=== PATIENT | female | born 1980 | race Caucasian/White ===

== ENCOUNTER 2016-09-24 05:29 | Inpatient (IN) | payer BC ==
[~2016-09-24] VITALS: Ht 160 cm; Wt 84.5 kg
[2016-09-24] VITALS (17 sets, daily range): BP systolic 97–123; BP diastolic 54–97; PULSE 62–86; TEMP 97.5–98.7
[~2016-09-24 05:29] MED LIST: MOTRIN 800800 MG/TAB PO; PERCOCET 325 MG1 TA2 PO; PRENATAL1 TA7 PO
[2016-09-24 06:41] LABS: BASO % 0.1 % (0.0-2.0); EOS # 0.1 (0.0-0.7); EOS % 0.7 % (0-4.0); GRAN # 5.2 (1.4-6.5); GRAN % 71.6 % (42.2-75.2); HEMATOCRIT 41.9 % (37.0-47.0); HEMOGLOBIN 14.6 g/dl (12.5-16.0); LYMPH # 1.6 (1.2-3.4); LYMPH % 21.8 % (20.0-51.0); MEAN CELL VOLUME 88 fl (80.0-100.0); MEAN CORPUSCULAR HEMOGLOBIN 31 pg (27.0-31.0); MEAN CORPUSCULAR HGB CONC 35 g/dl (33.0-37.0); MEAN PLATELET VOLUME 9.8 fl (7.4-10.4); MONO # 0.4 (0.1-0.6); MONO % 5.4 % (1.7-9.3); PLATELET COUNT 136 K/mm3 (130-400); RED BLOOD COUNT 4.74 M/mm3 (4.10-5.30); REDCELL DISTRIBUTION WIDTH-CV 13.7 % (11.5-14.5); WHITE BLOOD COUNT 7.3 K/mm3 (4.8-10.8)
[2016-09-24] MEDS ORDERED: MOTRIN 600600 MG/TAB PO (14:51)
[2016-09-24] MEDS ORDERED: PERCOCET 325 MG1 TA2 PO (14:51)
[2016-09-25] VITALS: BP 107/66; PULSE 65; TEMP 97.5
[2016-09-25 03:10] VITALS: BP 104/66; PULSE 74; TEMP 98.1
[2016-09-25 07:15] VITALS: BP 103/55; PULSE 67; TEMP 98.1
[2016-09-25 08:48] LABS: BASO % 0.2 % (0.0-2.0); EOS % 0.3 % (0-4.0); GRAN # 7.4 (1.4-6.5); GRAN % 83.6 % (42.2-75.2); HEMATOCRIT 39.8 % (37.0-47.0); HEMOGLOBIN 13.2 g/dl (12.5-16.0); LYMPH % 11.3 % (20.0-51.0); MEAN CELL VOLUME 92 fl (80.0-100.0); MEAN CORPUSCULAR HEMOGLOBIN 30 pg (27.0-31.0); MEAN CORPUSCULAR HGB CONC 33 g/dl (33.0-37.0); MONO # 0.4 (0.1-0.6); PLATELET COUNT 120 K/mm3 (130-400); RED BLOOD COUNT 4.35 M/mm3 (4.10-5.30); REDCELL DISTRIBUTION WIDTH-CV 13.9 % (11.5-14.5); WHITE BLOOD COUNT 8.8 K/mm3 (4.8-10.8)
[2016-09-25 12:30] VITALS: BP 112/68; PULSE 73; TEMP 98
== END 2016-09-25 16:50 | disposition home or self-care (01) | DRG 765 ==
LOC: OB 05:29
PROVIDERS: Obstetrics & Gynecology
PROC: 10D00Z1 Extraction of Products of Conception, Low, Open Approach (ICD-10-PCS; principal; 2016-09-24)
DX: O34.211 Maternal care for low transverse scar from previous cesarean delivery (principal); O99.113 Other diseases of the blood and blood-forming organs and certain disorders involving the immune mechanism complicating pregnancy, third trimester; D69.6 Thrombocytopenia, unspecified; N85.8 Other specified noninflammatory disorders of uterus; O09.523 Supervision of elderly multigravida, third trimester; O09.43 Supervision of pregnancy with grand multiparity, third trimester; Z3A.39 39 weeks gestation of pregnancy; Z37.0 Single live birth; O69.81X0 Labor and delivery complicated by cord around neck, without compression, not applicable or unspecified
CPT/HCPCS: J0690; J1885; J2175; J2270; J2370; J2405; J2590; J7120

== ENCOUNTER 2019-10-24 05:27 | Inpatient (IN) | payer OTHER ==
[2019-10-24] VITALS (18 sets, daily range): BP systolic 89–130; BP diastolic 56–81; PULSE 62–78; TEMP 98.1–98.5
[~2019-10-24] VITALS: Ht 160 cm; Wt 85.9 kg
--- NOTE | 2019-10-24 05:25 | NUR ---
Pt ambulatory to 222 for scheduled repeat c/s. Clean gown on. EFM and TOCO explained and applied. Pt denies LOF, vaginal bleeding or contractions. Report good movement. IV started and labs obtained via IV site. LR bolus infusing without difficulties. Consents and VS taken. Call light within reach.
[~2019-10-24 05:27] MED LIST changes: +MOTRIN 600600 MG/TAB PO
[2019-10-24 06:15] LABS: BASO % 0.1 % (0.0-2.0); EOS # 0.1 (0.0-0.7); EOS % 0.6 % (0-4.0); GRAN # 5.6 (1.4-6.5); HEMATOCRIT 44.5 % (37.0-47.0); HEMOGLOBIN 15.4 g/dl (12.5-16.0); LYMPH # 1.6 (1.2-3.4); LYMPH % 20.3 % (20.0-51.0); MEAN CELL VOLUME 89 fl (80.0-100.0); MEAN CORPUSCULAR HEMOGLOBIN 31 pg (27.0-31.0); MEAN CORPUSCULAR HGB CONC 35 g/dl (33.0-37.0); MEAN PLATELET VOLUME 9.7 fl (7.4-10.4); MONO # 0.4 (0.1-0.6); MONO % 5.5 % (1.7-9.3); PLATELET COUNT 146 K/mm3 (130-400); RED BLOOD COUNT 5.02 M/mm3 (4.10-5.30); REDCELL DISTRIBUTION WIDTH-CV 13.8 % (11.5-14.5)
--- NOTE | 2019-10-24 12:15 | NUR ---
Rests in bed, alert. Calls out, states having a gush. Nurse Dawn came and got this nurse. Palpated fundus to firm with two medium and two small clots noted. 1220 Dr. Hughes called this information above. New orders to given methergine 0.2 mg im now and start p.o. methergine four hours after im dose.
[2019-10-25 05:15] VITALS: BP 118/66; PULSE 70; TEMP 98
[2019-10-25 07:21] LABS: HEMATOCRIT 43.8 % (37.0-47.0); HEMOGLOBIN 14.4 g/dl (12.5-16.0)
[2019-10-25 09:00] VITALS: BP 118/70; PULSE 81; TEMP 98
--- NOTE | 2019-10-25 10:03 | NUR ---
Initial visit; Mom thanked [employer] for offering congratulations and God's blessings for the of her daughter. Sheet [employer] thanked mom for choosing our hospital.
[2019-10-25 12:47] VITALS: BP 115/76; PULSE 81; TEMP 97.8
[2019-10-25 16:30] VITALS: BP 124/78; PULSE 78; TEMP 97.4
[2019-10-25 19:45] VITALS: BP 117/62; PULSE 70; TEMP 98.2
[2019-10-26 08:15] VITALS: BP 118/67; PULSE 93; TEMP 97.6
--- NOTE | 2019-10-26 08:15 | NUR ---
Sits up, eating breakfast. Ibuprofen 600 mg given as ordered.
[2019-10-26] MEDS ORDERED: PERCOCET 325 MG1 TA2 PO (10:43)
[2019-10-26] MEDS ORDERED: MOTRIN 600600 MG/TAB PO (10:43)
--- NOTE | 2019-10-26 13:00 | NUR ---
Rests in bed, alert. Discharge instructions given. Verbalizes understanding.
== END 2019-10-26 13:40 | disposition home or self-care (01) | DRG 788 ==
LOC: OB 05:27 → LDR 06:46 → OB 10-26 13:40
PROVIDERS: ADMIT Obstetrics & Gynecology
PROC: 10D00Z1 Extraction of Products of Conception, Low, Open Approach (ICD-10-PCS; principal; 2019-10-24)
DX: O34.211 Maternal care for low transverse scar from previous cesarean delivery (principal); O99.824 Streptococcus B carrier state complicating childbirth; Z3A.38 38 weeks gestation of pregnancy; Z37.0 Single live birth
CPT/HCPCS: J0690; J1885; J2210; J2370; J2405; J2590; J7120